=== PATIENT | female | born 1940 | race Caucasian/White ===

== ENCOUNTER → 2016-10-02 | Outpatient (CLI) | payer MEDICARE ==
--- NOTE | 2016-10-02 13:46 | MR ---
EXAMINATION TYPE: MR brain and iac wo/w con DATE OF EXAM: 10/02/2016 12:29 PM COMPARISON: NONE HISTORY: Tonsil mass, Hearing loss CONTRAST: 20 mL MultiHance TECHNIQUE: T1-weighted sagittal, diffusion, T2, and FLAIR axial views of the brain are submitted. The high-reso lution T2 axial and postcontrast T1 axial and coronal views of the IACs are submitted. FINDINGS: There is no pathologic enhancement of the seventh and eighth cranial nerve complex. There is no acou stic neuroma. There is a 5 mm calvarial lesion likely benign. There are approximately 30 white matter lesions which are nonspecific scattered throughout both cerebral hemispheres. Nasal septal deviation changes of chronic sinusitis noted. No evidence of cerebellopontine angle mass or acoustic neuroma. Nasopharynx symmetric. Oropharynx and peritonsillar region not included on the exam. No midline shift. Ventricular system midline. Mastoid air cells are clear. IMPRESSION: 1. No evidence of cerebellopontine angle mass or acoustic neuroma. 2. Indeterminate tiny right calvarial lesion most likely benign measuring 5 mm 3. Degenerative change with nonspecific white matter findings most typical remote microvascular ische thanh. 4. On the coronal view of the does appear to be mild prominence of the peritonsillar soft tissues whi ch is only partially included on exam. The patient apparently rescheduled exam for soft tissue neck d ue to claustrophobia.
== END | disposition home or self-care (01) ==
LOC: RADMRIMAIN 11:25
PROVIDERS: ATTEND Otolaryngology
DX: G31.9 Degenerative disease of nervous system, unspecified (principal); R90.82 White matter disease, unspecified
CPT/HCPCS: 70553; A9577

== ENCOUNTER → 2016-10-08 | Outpatient (CLI) | payer MEDICARE ==
--- NOTE | 2016-10-10 09:52 | MR ---
EXAMINATION TYPE: MR neck wo/w con DATE OF EXAM: 10/08/2016 2:47 PM COMPARISON: MRI brain and internal auditory canal from 6 days earlier HISTORY: Tonsillar mass per order, right-sided hearing loss and tinnitus per patient. CONTRAST: Standard multiplanar, multisequence MRI departmental protocol utilizing 20 mL intravenous MultiHance gadolinium contrast. FINDINGS: Beginning at level of the posterior oropharyngeal airway at level of the tongue base there is heterogeneous fairly symmetric lobulated tissue causing concentric irregular narrowing of the airw ay seen best near axial image 26 extending inferiorly to the hyoid bone, area of involvement measures roughly 4 cm transversely by 4 cm in craniocaudal dimension by 2 cm anterior posterior dimension. There are suspicious lymph nodes bilaterally above level of hyoid bone, for reference right sided lym ph node just anterior to internal jugular vein measures 1.3 x 1.1 cm on axial image 22. There are pro minent but subcentimeter left sided neck lymph nodes at this level identified. There appears to be slight asymmetric thickening without enhancement at level of the piriform sinus n ear axial image 17. There is suspicious lymph node at level of left thyroid gland lateral aspect measuring 2.0 x 1.5 cm o n axial image 11 series 601. A prominent but subcentimeter lymph node is seen just superior to this at is also suspicious. Visualized paranasal sinuses are clear. Nasal septum is deviated to right of midline. The globes are intact bilaterally. Visualized portion of brain parenchyma is within normal limits. Visualized osseou s structures are intact. IMPRESSION: Suspect large lobulated posterior tongue base mass with hypopharyngeal extension causing narrowing of the airway, bilateral neck adenopathy is suspected, advise PET CT correlation to confirm all finding s as there is some artifact degradation noted on MRI.
== END | disposition home or self-care (01) ==
LOC: RADMRIMAIN 13:29
PROVIDERS: ATTEND Otolaryngology
DX: H91.90 Unspecified hearing loss, unspecified ear (principal); H93.19 Tinnitus, unspecified ear; H93.3X9 Disorders of unspecified acoustic nerve; J35.9 Chronic disease of tonsils and adenoids, unspecified; R22.1 Localized swelling, mass and lump, neck
CPT/HCPCS: 70543; A9577

== ENCOUNTER 2016-10-30 09:18 | Day surgery (SDC) | payer MEDICARE ==
[2016-10-28 13:27] VITALS: BMI 43.0
[~2016-10-30 09:18] MED LIST: DEXAMETHASONE SOD PHOSPHATE 10 MG/ML 1 ML VIAL IV ONE; DEXAMETHASONE SOD PHOSPHATE 4 MG/ML 1 ML VIAL IV ONE; FAMOTIDINE 20 MG/2 ML VIAL IV ONE; HYDROmorphone 1 MG/ML 1 ML SYRINGE IVP PRN; LACTATED RINGERS 1,000 ML IV SCH; ONDANSETRON 4 MG/2 ML VIAL IVP ONE
[2016-10-30 10:31] LABS: Glucose,Whole Blood 137 mg/dL (75-99)
[2016-10-30] MEDS ORDERED: LIDOCAINE 1% 20 ML VIAL (10MG/ML) FOR IV START INTRADERMA ONE (10:31)
[2016-10-30] MEDS ORDERED: MIDAZOLAM 2 MG/2 ML VIAL ONE (11:50)
[2016-10-30] MEDS ORDERED: DEXAMETHASONE SOD PHOS (MDV) 100 MG/10 ML VIAL ONE (11:50)
[2016-10-30] MEDS ORDERED: GLYCOPYRROLATE 0.2 MG/ML 2 ML VIAL ONE (11:50)
[2016-10-30] MEDS ORDERED: NEOSTIGMINE 1 MG/ML 10 ML VIAL ONE (11:50)
[2016-10-30] MEDS ORDERED: ROCURONIUM BROMIDE 10 MG/ML 10 ML VIAL IV ONE (11:50)
[2016-10-30] MEDS ORDERED: LIDOCAINE 1% INJ 10MG/ML (20 ML MDV) ONE (11:50)
[2016-10-30] MEDS ORDERED: fentaNYL (PF) 50 MCG/ML 2 ML AMP ONE (11:50)
[2016-10-30] MEDS ORDERED: PROPOFOL 10 MG/ML 20 ML VIAL IV ONE (11:50)
[2016-10-30] MEDS ORDERED: SUCCINYLCHOLINE CHLORIDE VIAL 200 MG/10 ML VIAL IV ONE (11:50)
[2016-10-30] MEDS: ceFAZolin 1,000 MG in DEXTROSE/WATER 1 50ML.BAG IV ONE ×2 (12:05→12:39)
[2016-10-30] MEDS ORDERED: SODIUM CHLORIDE 0.9% 50 ML with ceFAZolin 1,000 MG IV ONE ×2 (12:05)
--- NOTE | 2016-10-30 12:57 | P.OP ---
Date of Procedure: 10/30/16 Preoperative Diagnosis: Mass right base of tongue Suspicious tonsillar enlargement Cough Dysphasia Postoperative Diagnosis: Same Esophagitis Procedure(s) Performed: Triple endoscopy with biopsy of the right base of tongue Bilateral tonsillar biopsy Implants: Anesthesia: MIKEA Surgeon: Sarabjit Mosher Estimated Blood Loss (ml): 20 Pathology: other (We sent the right base of tongue and bilateral tonsil specimen fresh for analysis to rule out lymphoma and her other pathologies.) Condition: stable Disposition: PACU Indications for Procedure: This patient was found to have a right base of tongue lesion and large suspicious. Patient also has irregular tonsils that were suspicious and biopsy is recommended. Patient had a MRI scan done demonstrating a large lobulated posterior tongue base mass with a hypopharyngeal extension causing narrowing of the airway and bilateral neck lymphadenopathy is suspected. Biopsy was recommended and the tissue is to be sent fresh. Operative Findings: Patient had a base of tongue mass located more on the right side and some tonsillar hypertrophy which was suspicious which was biopsied. Patient also had some esophagitis changes. Description of Procedure: This patient was taken to the operative room and placed in a supine position. A general inhalation anesthetic was administered and the patient was intubated with a #5 STUDIO CONTROL OPERATOR tube. A Jako laryngoscope was placed into the patient's mouth with care to avoid any trauma to the lips teeth gums and tongue. Mouth was opened tongue was depressed and the entire Ciaran and hypopharynx was evaluated including the piriform sinus epiglottic folds Davis cords of course base of tongue both bilaterally and tonsil area were all evaluated. Postcricoid space vallecula epiglottis all were evaluated. The tonsils were enlarged and suspicious and biopsies were taken we sent these fresh I also evaluated the base the tongue and there was a mass type lesion of the base the tongue extending inferiorly. We biopsied this area and sent this for fresh evaluation to rule out lymphoma and her other possible malignancies. We did a thorough examination including microscopic examination and no other pathology was noted. We removed the Jako laryngoscope and a bronchoscope was inserted into the patient's trachea and all 12 segments of the lungs were evaluated. We perform the bronchoscopy to the extent of visualization with the bronchoscope and again no pulmonary abnormalities were noted. The esophagus was then evaluated and an esophagoscopy was placed into the mouth following the right piriform sinus into the proximal esophagus. We did evaluate the entire esophagus from the upper to the lower esophageal sphincter. The visualization was somewhat difficult as the esophagus was quite inflamed. Esophagoscope was removed and the patient tolerated this well. The stomach was suctioned and will be seeing the patient back in the office in 1 week for recheck. Patient is on a soft diet.
[2016-10-30 13:09] VITALS: TEMP 97.6
[2016-10-30] MEDS ORDERED: IV FLUID CONTINUATION 1,000 ML IV ONE ×2 (14:03)
[2016-10-30 14:27] VITALS: PULSE 89
[2016-10-30 14:35] LABS: Glucose,Whole Blood 213 mg/dL (75-99)
[2016-10-30 14:58] VITALS: BP 137/77; RESP 20
== END 2016-10-30 15:21 | disposition home or self-care (01) ==
LOC: OR 09:18
PROVIDERS: ATTEND Otolaryngology
DX: K14.0 Glossitis (principal); J35.1 Hypertrophy of tonsils; R47.02 Dysphasia; Z88.5 Allergy status to narcotic agent; J44.9 Chronic obstructive pulmonary disease, unspecified; K21.0 Gastro-esophageal reflux disease with esophagitis; E11.9 Type 2 diabetes mellitus without complications; E78.5 Hyperlipidemia, unspecified; Z99.81 Dependence on supplemental oxygen; R42 Dizziness and giddiness; Z79.84 Long term (current) use of oral hypoglycemic drugs; Z79.4 Long term (current) use of insulin; Z79.899 Other long term (current) drug therapy; Z87.891 Personal history of nicotine dependence
CPT/HCPCS: 42800; 41599; 88305; 88312; J2250; J0330; J1100 ×2; J2710; J2405; J2001; J3010; J0690; J2704; 88307

== ENCOUNTER 2018-11-21 02:36 | Inpatient (IN) | payer MEDICARE ==
[2018-11-21] MEDS ORDERED: ENOXAPARIN 100 MG/ML SYRINGE SQ STA (03:30)
[2018-11-21] MEDS ORDERED: DEXTROSE 5% IN WATER 100 ML with AMIODARONE 150 MG IV ONE (03:30)
[2018-11-21] MEDS ORDERED: DEXTROSE 5% IN WATER 250 ML with AMIODARONE 300 MG IV ONE (04:00)
[2018-11-21] MEDS ORDERED: IPRATROPIUM-ALBUTEROL 3 ML NEB INHALATION STA (04:12)
[2018-11-21 04:27] LABS: Basophils % (A) 0 %; Eosinophils # (A) 0.1 k/uL (0-0.7); Eosinophils % (A) 1 %; HCT 45.2 % (34.0-46.0); HGB 14.8 gm/dL (11.4-16.0); Lymphocytes # (A) 2.4 k/uL (1.0-4.8); Lymphocytes % (A) 24 %; MCH 29.4 pg (25.0-35.0); MCHC 32.6 g/dL (31.0-37.0); MCV 90.1 fL (80.0-100.0); Mean Platelet Volume 8.7; Monocytes # (A) 0.7 k/uL (0-1.0); Monocytes % (A) 7 %; Neutrophils # (A) 6.6 k/uL (1.3-7.7); Neutrophils % (A) 65 %; Platelet Count 184 k/uL (150-450); RBC 5.02 m/uL (3.80-5.40); RDW 13.2 % (11.5-15.5); WBC 10.1 k/uL (3.8-10.6)
[2018-11-21 04:35] LABS: ALT 29 U/L (9-52); AST 32 U/L (14-36); African American GFR (CKD) >90 (>60 ml/min/1.73 sqM); Albumin 3.6 g/dL (3.5-5.0); Alkaline Phosphatase 76 U/L (38-126); Anion Gap 7 mmol/L; Blood Urea Nitrogen 11 mg/dL (7-17); Calcium 8.6 mg/dL (8.4-10.2); Carbon Dioxide 29 mmol/L (22-30); Chloride 102 mmol/L (98-107); Glucose 226 mg/dL (74-99); Magnesium 2.2 mg/dL (1.6-2.3); Potassium 4.3 mmol/L (3.5-5.1); Sodium 138 mmol/L (137-145); Total Bilirubin 0.8 mg/dL (0.2-1.3); Total Protein 7.1 g/dL (6.3-8.2)
[2018-11-21] MEDS ORDERED: NITROGLYCERIN SL TABS 0.4 MG TAB SUBLINGUAL PRN (04:51)
[2018-11-21 04:52] LABS: Prothrombin Time 10.3 sec (9.0-12.0)
[2018-11-21 04:55] LABS: Partial Thromboplastin Time 21.2 sec (22.0-30.0)
[2018-11-21] MEDS ORDERED: MECLIZINE 12.5 MG TAB PO PRN (04:55)
[2018-11-21] MEDS ORDERED: LORazepam 0.5 MG TAB PO PRN (04:55)
[2018-11-21] MEDS ORDERED: ACETAMINOPHEN TAB 325 MG TAB PO PRN (04:55)
[2018-11-21] MEDS ORDERED: HYDROcodone/APAP 5-325MG 1 EACH TAB PO PRN (04:55)
[2018-11-21] MEDS ORDERED: ONDANSETRON 4 MG TAB PO PRN (04:55)
[2018-11-21] MEDS ORDERED: predniSONE 20 MG TAB PO SCH (05:00)
--- NOTE | 2018-11-21 07:17 | ED ---
SOB HPI - General Chief Complaint: Shortness of Breath Stated Complaint: SOB Time Seen by Provider: 11/21/18 02:56 Source: patient, EMS Mode of arrival: EMS Limitations: no limitations - History of Present Illness Initial Comments: This patient is a 78-year-old woman who arrives here as a transfer from [facility]. The patient states that she had gone there tonight to be evaluated for shortness of breath. The patient relates she does have history of underlying COPD. Off for 2-3 days now she has noticed that her breathing was getting worse than usual. She also has had a little bit of nonproductive cough. The patient thought that her COPD was worsening and went to the other hospital. When the patient was worked up there she was found to be in atrial fibrillation versus atrial flutter. The patient was given IV Cardizem and when this did not revert her they transferred her here because there is no cardiology coverage over the weekend. The patient denies chest pain. She states she was not aware of any palpitations and did not feel like her heart was racing. Patient denies fever or productive cough. MD Complaint: shortness of breath Onset/Timin -: days(s) Severity scale (1-10): 0 Consistency: constant Improves With: oxygen Worsens With: nothing Known History Of: COPD Associated Symptoms: cough Treatments Prior to Arrival: other - Related Data Home Oxygen Therapy: No Home Medications Medication Instructions Recorded Confirmed Acetaminophen Tab [Tylenol Tab] 650 mg PO Q4-6H PRN 10/28/16 10/30/16 Albuterol Nebulized [Ventolin 2.5 mg INHALATION TID 10/28/16 10/30/16 Nebulized] Fluticasone Nasal [place] [Flonase 1 spray EA NOSTRIL DAILY 10/28/16 10/30/16 Nasal [place]] LORazepam [Ativan] 0.5 mg PO TID PRN 10/28/16 10/30/16 Loratadine 10 mg PO DAILY 10/28/16 10/30/16 Meclizine [Antivert] 12.5 mg PO TID PRN 10/28/16 10/30/16 Ondansetron [Zofran] 4 mg PO Q8HR PRN 10/28/16 10/30/16 Simvastatin [Zocor] 10 mg PO HS 10/28/16 10/30/16 metFORMIN HCL [Metformin HCl] 500 mg PO BID 10/28/16 10/30/16 Previous Rx's Medication Instructions Recorded Amoxicillin/Potassium Clav 1 each PO Q12HR #14 tab 10/30/16 [Augmentin 875-125 Tablet] Hydrocodone/Acetaminophen [[place] 1 each PO Q6HR PRN #30 tab 10/30/16 5-325] Omeprazole 20 mg PO BID #60 tablet. 10/30/16 predniSONE 20 mg PO DIRECTED #5 tab 10/30/16 Allergies Allergy/AdvReac Type Severity Reaction Status Date / Time meperidine [From Demerol] Allergy Severe Anaphylaxis Verified 10/30/16 10:17 Review of Systems ROS Statement: Those systems with pertinent positive or pertinent negative responses have been documented in the HPI. ROS Other: All systems not noted in ROS Statement are negative. Constitutional: Denies: fever, chills Respiratory: Reports: cough, dyspnea. Denies: hemoptysis Cardiovascular: Denies: chest pain, palpitations, edema, syncope Gastrointestinal: Denies: abdominal pain, vomiting, diarrhea Genitourinary: Denies: dysuria, hematuria Musculoskeletal: Denies: back pain Skin: Denies: rash Neurological: Denies: headache, weakness, numbness Psychiatric: Reports: anxiety Past Medical History Past Medical History: COPD, Diabetes Mellitus, Osteoarthritis (OA) Additional Past Medical History / Comment(s): BACK PAIN, ENVIRONMENTAL ALLERGIES, OXYGEN AT 2 L PRN SOB., STATES NEW DIAGNOSIS OF MENIERES WITH VERTIGO. History of Any Multi-Drug Resistant Organisms: None Reported Past Surgical History: Breast Surgery, Hysterectomy Past Anesthesia/Blood Transfusion Reactions: No Reported Reaction, Motion S ickness Past Psychological History: No Psychological Hx Reported Smoking Status: Former smoker Past Alcohol Use History: None Reported Past Drug Use History: None Reported - Past Family History Mother Family Medical History: Cancer Additional Family Medical History / Comment(s): LUNG CANCER General Exam Limitations: no limitations General appearance: alert, in distress Head exam: Present: atraumatic, normocephalic Eye exam: Present: normal appearance. Absent: scleral icterus, conjunctival injection ENT exam: Present: normal oropharynx Respiratory exam: Present: wheezes. Absent: respiratory distress, rales, rhonchi, stridor Cardiovascular Exam: Present: tachycardia, normal heart sounds. Absent: systolic murmur, diastolic murmur, rubs, gallop GI/Abdominal exam: Present: soft. Absent: distended, tenderness, guarding, rebound, rigid, mass Extremities exam: Present: normal inspection, normal capillary refill. Absent: pedal edema, calf tenderness Back exam: Present: normal inspection. Absent: CVA tenderness (R), CVA tenderness (L) Neurological exam: Present: alert, oriented X3 Skin exam: Present: warm, dry, intact, normal color. Absent: rash Course Vital Signs 11/21/18 11/21/18 11/21/18 02:41 04:15 04:25 Temperature 97.8 F Pulse Rate 146 H 100 97 Respiratory 22 Rate Blood Pressure 126/70 O2 Sat by Pulse 95 Oximetry 11/21/18 11/21/18 11/21/18 05:03 05:08 06:28 Temperature 98.4 F Pulse Rate 96 92 Respiratory 20 18 18 Rate Blood Pressure 95/65 112/63 O2 Sat by Pulse 97 97 Oximetry Medical Decision Making - Medical Decision Making Patient is a 78-year-old woman transferred here from [facility] for a narrow complex tachycardia to have admission and cardiology consultation. I had ordered medication for rate control when the patient spontaneously reverted to sinus rhythm. The patient's initial ECG shows a narrow complex tachycardia which I suspect is atrial fibrillation though it may be atrial flutter with 2-1 conduction. The patient's postconversion ECG shows sinus rhythm. Patient will be admitted for serial cardiac enzymes and to have cardiology consultation. She does feel well after converting. - Lab Data Result diagrams: 11/21/18 03:45 11/21/18 03:45 Lab Results 11/21/18 11/21/18 11/21/18 Range/Units 03:45 03:45 03:45 WBC 10.1 (3.8-10.6) k/uL RBC 5.02 (3.80-5.40) m/uL Hgb 14.8 (11.4-16.0) gm/dL Hct 45.2 (34.0-46.0) % MCV 90.1 (80.0-100.0) fL MCH 29.4 (25.0-35.0) pg MCHC 32.6 (31.0-37.0) g/dL RDW 13.2 (11.5-15.5) % Plt Count 184 (150-450) k/uL Neutrophils % 65 % Lymphocytes % 24 % Monocytes % 7 % Eosinophils % 1 % Basophils % 0 % Neutrophils # 6.6 (1.3-7.7) k/uL Lymphocytes # 2.4 (1.0-4.8) k/uL Monocytes # 0.7 (0-1.0) k/uL Eosinophils # 0.1 (0-0.7) k/uL Basophils # 0.0 (0-0.2) k/uL PT 10.3 (9.0-12.0) sec INR 1.0 (<1.2) APTT 21.2 L (22.0-30.0) sec Sodium 138 (137-145) mmol/L Potassium 4.3 (3.5-5.1) mmol/L Chloride 102 (98-107) mmol/L Carbon Dioxide 29 (22-30) mmol/L Anion Gap 7 mmol/L BUN 11 (7-17) mg/dL Creatinine 0.63 (0.52-1.04) mg/dL Est GFR (CKD-EPI)AfAm >90 (>60 ml/min/1.73 sqM) Est GFR (CKD-EPI)NonAf 87 (>60 ml/min/1.73 sqM) Glucose 226 H (74-99) mg/dL Calcium 8.6 (8.4-10.2) mg/dL Magnesium 2.2 (1.6-2.3) mg/dL Total Bilirubin 0.8 (0.2-1.3) mg/dL AST 32 (14-36) U/L ALT 29 (9-52) U/L Alkaline Phosphatase 76 (38-126) U/L Troponin I (0.000-0.034) ng/mL Total Protein 7.1 (6.3-8.2) g/dL Albumin 3.6 (3.5-5.0) g/dL 11/21/18 Range/Units 03:45 WBC (3.8-10.6) k/uL RBC (3.80-5.40) m/uL Hgb (11.4-16.0) gm/dL Hct (34.0-46.0) % MCV (80.0-100.0) fL MCH (25.0-35.0) pg MCHC (31.0-37.0) g/dL RDW (11.5-15.5) % Plt Count (150-450) k/uL Neutrophils % % Lymphocytes % % Monocytes % % Eosinophils % % Basophils % % Neutrophils # (1.3-7.7) k/uL Lymphocytes # (1.0-4.8) k/uL Monocytes # (0-1.0) k/uL Eosinophils # (0-0.7) k/uL Basophils # (0-0.2) k/uL PT (9.0-12.0) sec INR (<1.2) APTT (22.0-30.0) sec Sodium (137-145) mmol/L Potassium (3.5-5.1) mmol/L Chloride (98-107) mmol/L Carbon Dioxide (22-30) mmol/L Anion Gap mmol/L BUN (7-17) mg/dL Creatinine (0.52-1.04) mg/dL Est GFR (CKD-EPI)AfAm (>60 ml/min/1.73 sqM) Est GFR (CKD-EPI)NonAf (>60 ml/min/1.73 sqM) Glucose (74-99) mg/dL Calcium (8.4-10.2) mg/dL Magnesium (1.6-2.3) mg/dL Total Bilirubin (0.2-1.3) mg/dL AST (14-36) U/L ALT (9-52) U/L Alkaline Phosphatase (38-126) U/L Troponin I 0.014 (0.000-0.034) ng/mL Total Protein (6.3-8.2) g/dL Albumin (3.5-5.0) g/dL - EKG Data -: EKG Interpreted by [place] EKG shows normal: axis (Normal), intervals (Normal), QRS complexes (Normal), ST- T waves (Normal) Rate: tachycardia (Rate approximately 147 bpm) Interpretation: other (The underlying rhythm appears to be atrial fibrillation with a rate 147 bpm) Disposition Clinical Impression: Atrial fibrillation with RVR Disposition: ADMITTED IP TO THIS [facility] Condition: Good Is patient prescribed a controlled substance at d/c from ED?: No
[2018-11-21] MEDS ORDERED: AMOXIC-POT CLAV 875-125MG 1 EACH TAB PO SCH (09:00)
[2018-11-21] MEDS ORDERED: FLUTICASONE 50MCG/SPRAY NASAL 16GM EA NOSTRIL SCH (09:00)
[2018-11-21] MEDS: ALBUTEROL NEBULIZED 2.5 MG/3 ML INHALATION SCH ×2 (09:13→14:20)
[2018-11-21] MEDS: PANTOPRAZOLE 40 MG TABLET PO SCH ×2 (09:41→21:36)
[2018-11-21] MEDS: HEPARIN SOD,PORK IN 0.45% NACL 25,000 UNIT in 0.45% NACL 1 250ML.BAG IV SCH (13:10)
[2018-11-21] MEDS: METOPROLOL TARTRATE 50 MG TAB PO SCH ×2 (13:10→21:35)
--- NOTE | 2018-11-21 13:46 | P.CRDCN ---
History of Present Illness Consult date: 11/21/18 Reason for Consult (text): Paroxysmal atrial fibrillation Chief complaint: Proximal atrial fibrillation History of present illness: HISTORY OF PRESENT ILLNESS AND PLAN: This is a [78]-year-old [female] with history of remote smoking, COPD hyperlipidemia, diabetes mellitus, osteoarthritis, back pain, seasonal ALLERGI ES, Mnire's disease, vertigo and PRN O2 at home. Patient presents in the emergency department with complaints of [shortness of breath, cough and vomiting due to cough. Transferred from [facility] due to no cardiology coverage for weekend. Patient currently sitting up receiving breathing treatment with no acute distress. Cough is better and patient is able to speak. Patient states her cough has been getting worse and worse so she went to [facility]. Patient has been in and out of atrial fibrillation/atrial flutter/sinus tachycardia. Patient states she has had no chest pain, chest pressure, palpitations, or lower extremity edema. Afebrile. Troponins negative 1. ]. SIGNIFICANT PAST MEDICAL HISTORY: [remote smoking, COPD hyperlipidemia, diabetes mellitus, osteoarthritis, back pain, seasonal ALLERGIES, Mnire's disease, vertigo and PRN O2 at home.] PAST SURGICAL HISTORY: See list. EKG shows [sinus rhythm/sinus tach], heart rate [99] bpm. Troponins negative x [1]. SIGNIFICANT LABORATORY VALUES: [CBC WNL. BMP WNL]. Chest x-ray [none]. REVIEW OF SYSTEMS: CONSTITUTIONAL: No acute distress, currently getting updraft treatment. States cough is already better. EYES: Denies blurred vision. [Denies blurred vision or vision changes. Denies eye pain.] EARS, NOSE, MOUTH & THROAT: [Denies headache. Denies sore throat. Denies ear pain Denies hemoptysis.] CARDIOVASCULAR: [Denies chest pain. Complains of shortness of breath. Denies orthopnea. Denies PND. Denies palpitations.] RESPIRATORY: [Complains of cough, shortness of breath. ] GASTROINTESTINAL: [Denies abdominal pain or distention. Denies diarrhea. Denies constipation. Denies nausea. Complains of vomiting due to coughing hard.] MUSCULOSKELETAL: [Complains of myalgias.] INTEGUMENTARY: [Denies pruitis. Denies rash.] ENDOCRINE: [Denies fatigue. Denies weight change. Denies polydipsia. Denies polyurina Denies heat/cold intolerance.] GENITOURINARY:[ Denies burning, hematuria or urgency with micturation.] HEMATOLOGIC: [Denies history of anemia. Denies bleeding.] NEUROLOGIC: [Denies numbness. Denies tingling. Denies weakness.] PSYCHIATRIC: [Denies anxiety. Denies depression.] PHYSICAL EXAM: VITAL SIGNS: WNL GENERAL: Well developed, in no acute distress. AOX3 HEENT: Head is atraumatic, normocephalic. Pupils are equal, round. Extra ocular movements intact. Mucous membranes moist. Neck supple. No JVD. No carotid bruit. No thyromegaly. LUNGS: Auscultation reveals wheezes. No rales or rhonchi. No chest wall tenderness on palpation or with deep breathing. HEART: Regular rate and rhythm, no rubs or gallops. S1 and S2 heard. No murmur. ABDOMEN: Abdominal exam, WNL. Bowel sounds x4 quads. Soft, non-tender, without masses, organomegaly, or abdominal aorta enlargement. EXTREMITIES/VASCULAR: Extremities have easily palpable radial, femoral, dorsalis pedis and posterior tibial pulses. No cyanosis, calf tenderness. No BLE edema. NEUROLOGIC: Patient is awake, alert and oriented x3. No focal neurologic abnormalities. FINAL IMPRESSION: 1. [ COPD exacerbation] 2. [ Intractable cough with vomiting]. 3. [ New onset Atrial fibrillation/atrial flutter]. 4. [ Hyperlipidemia]. 5. [ Diabetes mellitus]. PLAN: [Start IV heparin for new onset atrial fibrillation. Start Lopressor 50 mg twice daily first dose NOW. Patient to echocardiogram. Check TSH/free t4. Consult Pulmonary. Continue with current medication/medical regime. Continue with updraft treatments. Continue home medications. Thank you kindly for this consult.] Nurse Practitioner note has been reviewed by the Physician. Signing provider agrees with the documented findings, assessment and plan of care. Past Medical History Past Medical History: COPD, Diabetes Mellitus, Osteoarthritis (OA) Additional Past Medical History / Comment(s): BACK PAIN, ENVIRONMENTAL ALLERGIES, OXYGEN AT 2 L PRN SOB., STATES NEW DIAGNOSIS OF MENIERES WITH VERTIGO. History of Any Multi-Drug Resistant Organisms: None Reported Past Surgical History: Breast Surgery, Hysterectomy Past Anesthesia/Blood Transfusion Reactions: No Reported Reaction, Motion Sickness Past Psychological History: No Psychological Hx Reported Smoking Status: Former smoker Past Alcohol Use History: None Reported Past Drug Use History: None Reported - Past Family History Mother Family Medical History: Cancer Additional Family Medical History / Comment(s): LUNG CANCER Medications and Allergies Home Medications Medication Instructions Recorded Confirmed Type Acetaminophen Tab [Tylenol Tab] 650 mg PO Q4-6H PRN 10/28/16 11/21/18 History Albuterol Nebulized [Ventolin 2.5 mg INHALATION RT-TID 10/28/16 11/21/18 History Nebulized] Loratadine 10 mg PO DAILY 10/28/16 11/21/18 History Ondansetron [Zofran] 4 mg PO Q8HR PRN 10/28/16 11/21/18 History Simvastatin [Zocor] 10 mg PO HS 10/28/16 11/21/18 History metFORMIN HCL [Metformin HCl] 500 mg PO BID 10/28/16 11/21/18 History Insulin Detemir [Levemir Flextouch] 40 unit SQ HS 11/21/18 11/21/18 History Meclizine [Antivert] 25 mg PO BID 11/21/18 11/21/18 History Allergies Allergy/AdvReac Type Severity Reaction Status Date / Time celery Allergy Severe Rash/Hives Verified 11/21/18 07:41 meperidine [From Demerol] Allergy Severe Anaphylaxis Verified 10/30/16 10:17 Physical Exam Vitals: Vital Signs Temp Pulse Resp BP Pulse Ox 11/21/18 09:27 92 11/21/18 09:14 90 20 96 11/21/18 08:34 90 20 132/87 97 11/21/18 06:28 98.4 F 92 18 112/63 97 11/21/18 05:08 96 18 95/65 97 11/21/18 05:03 20 11/21/18 04:25 97 11/21/18 04:15 100 11/21/18 02:41 97.8 F 146 H 22 126/70 95 Intake and Output 11/20/18 11/21/18 11/21/18 22:59 06:59 14:59 Other: Weight 95.254 kg Results 11/21/18 03:45 11/21/18 03:45 Cardiac Enzymes 11/21/18 11/21/18 Range/Units 03:45 03:45 AST 32 (14-36) U/L Troponin I 0.014 (0.000-0.034) ng/mL Coagulation 11/21/18 Range/Units 03:45 PT 10.3 (9.0-12.0) sec APTT 21.2 L (22.0-30.0) sec CBC 11/21/18 Range/Units 03:45 WBC 10.1 (3.8-10.6) k/uL RBC 5.02 (3.80-5.40) m/uL Hgb 14.8 (11.4-16.0) gm/dL Hct 45.2 (34.0-46.0) % Plt Count 184 (150-450) k/uL Comprehensive Metabolic Panel 11/21/18 Range/Units 03:45 Sodium 138 (137-145) mmol/L Potassium 4.3 (3.5-5.1) mmol/L Chloride 102 (98-107) mmol/L Carbon Dioxide 29 (22-30) mmol/L BUN 11 (7-17) mg/dL Creatinine 0.63 (0.52-1.04) mg/dL Glucose 226 H (74-99) mg/dL Calcium 8.6 (8.4-10.2) mg/dL AST 32 (14-36) U/L ALT 29 (9-52) U/L Alkaline Phosphatase 76 (38-126) U/L Total Protein 7.1 (6.3-8.2) g/dL Albumin 3.6 (3.5-5.0) g/dL Current Medications Generic Name Dose Route Start Last Admin Trade Name Freq PRN Reason Stop Dose Admin Acetaminophen 650 mg 11/21/18 04:55 Tylenol Tab PO Q6H PRN Pain Hydrocodone Bitart/Acetaminophen 1 each 11/21/18 04:55 [place] 5-325 PO Q6HR PRN Pain Albuterol Sulfate 2.5 mg 11/21/18 09:00 11/21/18 09:13 Ventolin Nebulized INHALATION 2.5 mg TID [facility] Administration Amoxicillin/Clavulanate Potassium 1 each 11/21/18 09:00 Augmentin 875-125 PO Q12HR [facility] Aspirin 325 mg 11/22/18 09:00 Aspirin PO DAILY [facility] Fluticasone Propionate 1 spray 11/21/18 09:00 Flonase Nasal [place] EA NOSTRIL DAILY ALOK Lorazepam 0.5 mg 11/21/18 04:55 Ativan PO TID PRN Vertigo Meclizine HCl 12.5 mg 11/21/18 04:55 Antivert PO TID PRN Vertigo Nitroglycerin 0.4 mg 11/21/18 04:51 Nitrostat SUBLINGUAL Q5M PRN Chest Pain Non-Formulary Medication 10 mg 11/21/18 21:00 Simvastatin PO HS ALOK Ondansetron HCl 4 mg 11/21/18 04:55 Zofran PO Q8HR PRN Nausea Pantoprazole Sodium 40 mg 11/21/18 09:00 11/21/18 09:41 Protonix PO 40 mg BID ALOK Administration Prednisone 20 mg 11/21/18 05:00 11/21/18 07:13 PO Not Given DIRECTED ALOK Sodium Chloride 10 ml 11/21/18 09:00 11/21/18 09:42 Saline Flush IV 10 ml BID ALOK Administration Intake and Output 11/20/18 11/21/18 11/21/18 22:59 06:59 14:59 Other: Weight 95.254 kg 11/21/18 03:45 11/21/18 03:45 - EKG Interpretation EKG: sinus rhythm, normal ST/T (in and out of A flutter.)
[2018-11-21] MEDS ORDERED: HEPARIN SODIUM,PORCINE 5,000 UNIT/ML 1 ML VIAL IV STA (15:41)
[2018-11-21 17:04] LABS: Glucose,Whole Blood 262 mg/dL (75-99)
[2018-11-21] MEDS: INSULIN ASPART (NovoLOG) 100 UNIT/ML VIAL SQ SCH ×2 (17:41→21:36)
--- NOTE | 2018-11-21 18:13 | P.HPIM ---
History of Present Illness H&P Date: 11/21/18 Chief Complaint: Shortness of breath and cough Patient is a 78-year-old female with a known history of hypertension, diabetes type 2 insulin-dependent, COPD with recent history of smoking on home oxygen as needed, history of Mnire's disease initially presents to [facility] with complaints of cough and shortness of breath. Patient says that since last Thursday night she's been having increased breath cough and without any sputum production. Next day morning patient checked her blood pressure and was found to have increase in heart rate up to 150s. Patient initially presents to [facility] ER thinking that she was having COPD exacerbation, where she was found to have atrial fibrillation with RVR and was transferred to [facility] for further evaluation. Patient otherwise denied any chest pain. No palpitations. No leg swelling. No fever no chills. Patient did have an episode of vomiting with cough. No diarrhea. No nausea or abdominal pain. Patient was on Cardizem drip. Patient was also given amiodarone in the ER.. Currently rate is controlled with heart rate in around 100. Troponin 3 negative. Review of Systems Constitutional: Patient denies any fever or chills . No generalized weakness or weight loss. Abdomen: Patient denied nausea vomiting and diarrhea and abdominal pain. Cardiovascular: No chest pain. He does have shortness of breath. No palpitations. No leg swelling.. Respiratory: Cough without sputum production.. Patient does have shortness of breath Neurologic: Patient denied any numbness or tingling headache. Musculoskeletal: Patient denies any complaints of joint swelling or deformity. Skin: Negative Psychiatric: Negative Endocrine: No heat or cold intolerance. No recent weight gain. Genitourinary: No dysuria or hematuria. All other 14 point ROS negative except the above Past Medical History Past Medical History: COPD, Diabetes Mellitus, Osteoarthritis (OA) Additional Past Medical History / Comment(s): BACK PAIN, ENVIRONMENTAL ALLERGIES, OXYGEN AT 2 L PRN SOB., STATES NEW DIAGNOSIS OF MENIERES WITH VERTIGO. History of Any Multi-Drug Resistant Organisms: None Reported Past Surgical History: Breast Surgery, Hysterectomy Past Anesthesia/Blood Transfusion Reactions: No Reported Reaction, Motion Sickness Past Psychological History: No Psychological Hx Reported Smoking Status: Former smoker Past Alcohol Use History: None Reported Past Drug Use History: None Reported - Past Family History Mother Family Medical History: Cancer Additional Family Medical History / Comment(s): LUNG CANCER Medications and Allergies Home Medications Medication Instructions Recorded Confirmed Type Acetaminophen Tab [Tylenol Tab] 650 mg PO Q4-6H PRN 10/28/16 11/21/18 History Albuterol Nebulized [Ventolin 2.5 mg INHALATION RT-TID 10/28/16 11/21/18 History Nebulized] Loratadine 10 mg PO DAILY 10/28/16 11/21/18 History Ondansetron [Zofran] 4 mg PO Q8HR PRN 10/28/16 11/21/18 History Simvastatin [Zocor] 10 mg PO HS 10/28/16 11/21/18 History metFORMIN HCL [Metformin HCl] 500 mg PO BID 10/28/16 11/21/18 History Insulin Detemir [Levemir Flextouch] 40 unit SQ HS 11/21/18 11/21/18 History Meclizine [Antivert] 25 mg PO BID 11/21/18 11/21/18 History Allergies Allergy/AdvReac Type Severity Reaction Status Date / Time celery Allergy Severe Rash/Hives Verified 11/21/18 07:41 meperidine [From Demerol] Allergy Severe Anaphylaxis Verified 10/30/16 10:17 Physical Exam Vitals: Vital Signs Temp Pulse Pulse Resp BP BP Pulse Ox 11/21/18 14:31 88 11/21/18 14:20 84 11/21/18 12:00 98.6 F 98 18 122/79 93 L 11/21/18 09:27 92 11/21/18 09:14 90 20 96 11/21/18 08:34 90 20 132/87 97 11/21/18 06:54 97.8 F 89 20 136/66 95 11/21/18 06:28 98.4 F 92 18 112/63 97 11/21/18 05:08 96 18 95/65 97 11/21/18 05:03 20 11/21/18 04:25 97 11/21/18 04:15 100 11/21/18 02:41 97.8 F 146 H 22 126/70 95 Intake and Output 11/20/18 11/21/18 11/21/18 22:59 06:59 14:59 Other: Weight 95.254 kg PHYSICAL EXAMINATION: Patient is lying in the bed comfortably, no acute distress, awake alert and oriented.. HEENT: Normocephalic. Neck is supple. Pupils reactive. Nostrils clear. Oral cavity is moist. Ears reveal no drainage. Neck reveals no JVD, carotid bruits, or thyromegaly. CHEST EXAMINATION: Trachea is central. Symmetrical expansion. Scattered wheezing positive. No rhonchi and no crackles. ABDOMEN: Soft. Bowel sounds normal. No organomegaly. No abdominal bruits. Extremities: reveal no edema. No clubbing or cyanosis Neurologically awake, alert, oriented x3 with well-coordinated movements. No focal deficits noted Skin: No rash or skin lesions. Psychiatric: Coperative. Nonsuicidal Musculoskeletal: No joint swelling or deformity. Normal range of motion. Results CBC & Chem 7: 11/21/18 03:45 11/21/18 03:45 Labs: Abnormal Lab Results - Last 24 Hours (Table) 11/21/18 11/21/18 Range/Units 03:45 03:45 APTT 21.2 L (22.0-30.0) sec Glucose 226 H (74-99) mg/dL Thrombosis Risk Factor Assmnt - DVT/VTE Prophylaxis DVT/VTE Prophylaxis: Pharmacologic Prophylaxis ordered - Choose All That Apply Each Factor Represents 1 point: Abnormal pulmonary function (COPD) Each Risk Factor Represents 2 Points: Patient confined to bed Other congenital or acquired thrombophilia - If yes, enter type in comment: No Thrombosis Risk Factor Assessment Total Risk Factor Score: 3 Thrombosis Risk Factor Assessment Level: Moderate Risk Assessment and Plan Assessment: New onset atrial fibrillation with rapid ventricular rate. COPD with mild exacerbation. Chronic hypoxic respiratory failure on home oxygen when necessary Diabetes type 2 insulin-dependent Hypertension Hyperlipidemia Previous history of smoking Osteoarthritis Chronic low back pain History of Mnire's disease and vertigo DVT prophylaxis already on heparin drip Morbid obesity BMI 38.4 Plan: Patient will be continued on heparin drip. Cardizem drip was changed to oral beta blockers now. Continue with telemetry monitoring. Serial troponin 3 negative. 2-D echocardiogram was ordered. Cardiology is following. Patient will be continued on DuoNeb's. We'll add prednisone 40 mg daily. Chest x-ray and BNP will be ordered. Continue the insulin dosing and sliding scale. Follow closely and further recommendations based on the clinical course. Time with Patient: Greater than 30
[2018-11-21] MEDS: predniSONE 20 MG TAB PO SCH (19:00)
--- NOTE | 2018-11-21 19:48 | XR ---
EXAMINATION TYPE: XR chest 1V DATE OF EXAM: 11/21/2018 COMPARISON: NONE HISTORY: 78-year-old female with cough and shortness of breath TECHNIQUE: Single frontal view of the chest is obtained. FINDINGS: Heart mildly enlarged. Hyperinflation with mild interstitial prominence. Hazy peripheral lower lung d ensities related to overlying soft tissue. More focal patchy left basilar opacity. No sizable effusio n. IMPRESSION: Borderline heart size and suspected underlying COPD. Limitations due to portable technique and large patient body habitus. More patchy left basilar atelectasis versus infiltrate.
[2018-11-21 21:09] LABS: Glucose,Whole Blood 233 mg/dL (75-99)
[2018-11-21] MEDS: INSULIN DETEMIR (LEVEMIR) 100 UNIT/ML SYR SQ SCH (21:36)
[2018-11-21] MEDS: ATORVASTATIN 10 MG TAB PO SCH (21:36)
[2018-11-22 06:09] LABS: Glucose,Whole Blood 258 mg/dL (75-99)
[2018-11-22] MEDS: INSULIN ASPART (NovoLOG) 100 UNIT/ML VIAL SQ SCH ×4 (06:57→21:14)
[2018-11-22] MEDS: IPRATROPIUM-ALBUTEROL 3 ML NEB INHALATION PRN ×4 (08:03→19:26)
[2018-11-22 08:14] LABS: Cholesterol 149 mg/dL (<200); HDL Cholesterol 56 mg/dL (40-60); LDL Cholesterol,Calculated 71 mg/dL (0-99); Triglycerides 109 mg/dL (<150)
[2018-11-22] MEDS: METOPROLOL TARTRATE 50 MG TAB PO SCH ×2 (08:16→20:27)
[2018-11-22] MEDS: predniSONE 20 MG TAB PO SCH (08:16)
[2018-11-22] MEDS: PANTOPRAZOLE 40 MG TABLET PO SCH ×2 (08:16→20:27)
[2018-11-22] MEDS ORDERED: ASPIRIN 325 MG TAB PO SCH (09:00)
--- NOTE | 2018-11-22 12:03 | ECHOF ---
Referral Reason:Assess LV function MEASUREMENTS -------- HEIGHT: 157.5 cm WEIGHT: 108.9 kg BP: 159/59 RVIDd: 3.6 cm (< 3.3) IVSd: 1.3 cm (0.6 - 1.1) LVIDd: 3.8 cm (3.9 - 5.3) LVPWd: 1.4 cm (0.6 - 1.1) IVSs: 1.7 cm LVIDs: 2.9 cm LVPWs: 1.7 cm LA Diam: 3.5 cm (2.7 - 3.8) LAESV Index (A-L): 17.09 ml/m Ao Diam: 3.0 cm (2.0 - 3.7) AV Cusp: 1.7 cm (1.5 - 2.6) MV EXCURSION: 8.330 mm (> 18.000) MV EF SLOPE: 13 mm/s (70 - 150) EPSS: 1.0 cm MV E Gabriel: 1.06 m/s MV DecT: 157 ms MV A Gabriel: 1.16 m/s MV E/A Ratio: 0.91 RAP: 5.00 mmHg RVSP: 37.32 mmHg FINDINGS -------- Sinus rhythm. This was a technically difficult study with suboptimal views. The left ventricular size is normal. There is moderate concentric left ventricular hypertrophy. O verall left ventricular systolic function is normal with, an EF between 60 - 65 %. The right ventricle is mildly enlarged. Normal LA size by volume 22+/-6 ml/m2. The right atrium is normal in size. 5 ml of Lumason was utilized for enhancement of images. Lipomatous Hypertrophy of the atrial septum is present The aortic valve was not well visualized. Mild mitral annular calcification present. There is trace to mild mitral regurgitation. Mild tricuspid regurgitation present. There is mild pulmonary hypertension. The right ventricular systolic pressure, as measured by Doppler, is 37.32mmHg. The pulmonic valve was not well visualized. The aortic root size is normal. IVC Not well visulized. There is a trivial pericardial effusion present. CONCLUSIONS -------- 1. Sinus rhythm. 2. This was a technically difficult study with suboptimal views. 3. The left ventricular size is normal. 4. There is moderate concentric left ventricular hypertrophy. 5. Overall left ventricular systolic function is normal with, an EF between 60 - 65 %. 6. The right ventricle is mildly enlarged. 7. Normal LA size by volume 22+/-6 ml/m2. 8. The right atrium is normal in size. 9. 5 ml of Lumason was utilized for enhancement of images. 10. Lipomatous Hypertrophy of the atrial septum is present 11. The aortic valve was not well visualized. 12. Mild mitral annular calcification present. 13. There is trace to mild mitral regurgitation. 14. Mild tricuspid regurgitation present. 15. There is mild pulmonary hypertension. 16. The right ventricular systolic pressure, as measured by Doppler, is 37.32mmHg. 17. The pulmonic valve was not well visualized. 18. The aortic root size is normal. 19. IVC Not well visulized. 20. There is a trivial pericardial effusion present. CARD BOXER: Zahra Brumfield RDCS
[2018-11-22 12:06] LABS: Glucose,Whole Blood 312 mg/dL (75-99)
[2018-11-22 12:34] LABS: Hemoglobin A1C 10.2 % (4.0-6.0)
--- NOTE | 2018-11-22 13:17 | P.PN ---
Subjective 78-year-old female with a history of hypertension, diabetes, COPD history of Mnire's disease is transfer from [facility] for A. fib with RVR. She was having shortness of breath and cough at that time. she was put on Cardizem and heparin drip she was also put on breathing treatments and oral steroids. On 11/22/2018 Patient says that she's feeling better. Her shortness of breath is still there and she still coughing. She does not complain of any chest pain racing heart Objective - Vital Signs Vital signs: Vital Signs Temp 97.9 F 11/21/18 23:18 Pulse 78 11/22/18 12:00 Resp 16 11/22/18 12:00 BP 116/55 11/22/18 12:00 Pulse Ox 92 L 11/22/18 12:00 Intake & Output 11/21/18 11/22/18 11/22/18 18:59 06:59 18:59 Intake Total 120 480 Balance 120 480 Weight 109.1 kg Intake: Oral 120 480 Other: Voiding Method Toilet Toilet # Voids 1 2 - Exam On exam, alert and oriented x3. HEENT: Conjunctivae normal. eyes normal. NECK: No JVD. No thyroid enlargement. No LNs CARDIOVASCULAR: S1-S2 positive irregularly irregular rhythm RESPIRATION: Breath sounds diminished in the bases. No rhonchi or crackles. No bronchial breathing. ABDOMEN: Soft, nontender . No guarding. no masses palpable. No ascites, No hepatosplenomegaly.Bowel sounds heard. LEGS: No edema. no swelling NERVOUS SYSTEM: Cranial N 2-12 grossly normal. Moves all 4 limbs. No focal d eficits. No sensory deficit. No signs of cerebellar dysfucntion. Skin: no ulcer no rash - Labs CBC & Chem 7: 11/21/18 03:45 11/21/18 03:45 Labs: Abnormal Lab Results - Last 24 Hours (Table) 11/21/18 11/21/18 11/21/18 Range/Units 17:03 17:57 21:08 APTT 48.7 H (22.0-30.0) sec POC Glucose (mg/dL) 262 H 233 H (75-99) mg/dL Hemoglobin A1c (4.0-6.0) % 11/22/18 11/22/18 11/22/18 Range/Units 06:07 07:06 07:06 APTT 48.2 H (22.0-30.0) sec POC Glucose (mg/dL) 258 H (75-99) mg/dL Hemoglobin A1c 10.2 H (4.0-6.0) % 11/22/18 Range/Units 11:53 APTT (22.0-30.0) sec POC Glucose (mg/dL) 312 H (75-99) mg/dL Hemoglobin A1c (4.0-6.0) % Assessment and Plan Assessment: New onset atrial fibrillation with rapid ventricular rate. COPD with mild exacerbation. Chronic hypoxic respiratory failure on home oxygen when necessary Diabetes type 2 insulin-dependent Hypertension Hyperlipidemia Previous history of smoking Osteoarthritis Chronic low back pain History of Mnire's disease and vertigo Morbid obesity BMI 38.4 Plan - Continue heparin drip - Rate is controlled now - Awaiting cardiology for the recommendations - We'll continue rest medical care - We'll follow up on the patient Time with Patient: Greater than 30
[2018-11-22 13:49] VITALS: BMI 43.9
[2018-11-22] MEDS: HEPARIN SOD,PORK IN 0.45% NACL 25,000 UNIT in 0.45% NACL 1 250ML.BAG IV SCH (14:13)
[2018-11-22] MEDS ORDERED: guaiFENesin SYRUP 100MG/5ML 200 MG/10 ML CUP PO PRN (16:24)
[2018-11-22 16:49] LABS: Glucose,Whole Blood 386 mg/dL (75-99)
--- NOTE | 2018-11-22 17:42 | P.PN ---
Subjective Progress Note Date: 11/22/18 Principal diagnosis: COPD exacerbation/shortness of breath/atrial fibrillation This is a [78]-year-old [female] with history of remote smoking, COPD hyperlipidemia, diabetes mellitus, osteoarthritis, back pain, seasonal ALLERGIES, Mnire's disease, vertigo and PRN O2 at home. Patient presents in the emergency department with complaints of [shortness of breath, cough and vomiting due to cough. Transferred from [facility] due to no cardiology coverage for weekend. Patient doing better cough has decreased no current vomiting. Patient has converted to sinus rhythm, heart rate 87. VSS. Patient on room air. Discontinue IV heparin. Start Eliquis 5mg twice daily. Continue metoprolol tartrate 50 mg twice daily. Add liquid Robitussin PRN, as patient continues productive cough. Patient has no current complaints of chest pain, chest pressure, shortness of breath or palpitations. Decrease aspirin to 81 mg daily. Consult pulmonary. PHYSICAL EXAM: VITAL SIGNS: GENERAL: Well developed, in no acute distress. HEENT: Head is atraumatic, normocephalic. Pupils are equal, round. Extra ocular movements intact. Mucous membranes moist. Neck supple. No JVD. No carotid bruit. No thyromegaly. LUNGS: Bilateral wheezes and decreased airway movement. Scant rhonchi. No chest wall tenderness on palpation or with deep breathing. HEART: Regular rate and rhythm, no rubs or gallops. S1 and S2 heard. No murmur. ABDOMEN: Abdominal exam, WNL. Bowel sounds x4 quads. Soft, non-tender, without masses, organomegaly, or abdominal aorta enlargement. EXTREMITIES/VASCULAR: Extremities have easily palpable radial, femoral, dorsalis pedis and posterior tibial pulses. No cyanosis, calf tenderness. No BLE edema. NEUROLOGIC: Patient is awake, alert and oriented x3. No focal neurologic abnormalities. FINAL IMPRESSION: 1. COPD exacerbation 2. Intractable cough 3. New onset Atrial fibrillation/atrial flutter 4. Hyperlipidemia 5. Diabetes mellitus Objective - Vital Signs Vital signs: Vital Signs Temp 97.9 F 11/21/18 23:18 Pulse 94 11/22/18 16:00 Resp 16 11/22/18 16:00 BP 122/70 11/22/18 16:00 Pulse Ox 92 L 11/22/18 16:00 Intake & Output 11/21/18 11/22/18 11/22/18 18:59 06:59 18:59 Intake Total 120 1090 Balance 120 1090 Weight 109.1 kg 109.1 kg Intake: Intake, IV Titration 250 Amount Heparin Sod,Pork in 0.45% 250 NaCl 25,000 unit In 0.45 % NaCl 1 250ml.bag @ 10.5 UNITS/KG/HR 10.002 mls/ hr IV .Q24H [facility] Rx#: [id number] Oral 120 840 Other: Voiding Method Toilet Toilet # Voids 1 2 - Labs CBC & Chem 7: 11/21/18 03:45 11/21/18 03:45 Labs: Abnormal Lab Results - Last 24 Hours (Table) 11/21/18 11/21/18 11/22/18 Range/Units 17:57 21:08 06:07 APTT 48.7 H (22.0-30.0) sec POC Glucose (mg/dL) 233 H 258 H (75-99) mg/dL Hemoglobin A1c (4.0-6.0) % 11/22/18 11/22/18 11/22/18 Range/Units 07:06 07:06 11:53 APTT 48.2 H (22.0-30.0) sec POC Glucose (mg/dL) 312 H (75-99) mg/dL Hemoglobin A1c 10.2 H (4.0-6.0) % 11/22/18 Range/Units 16:43 APTT (22.0-30.0) sec POC Glucose (mg/dL) 386 H (75-99) mg/dL Hemoglobin A1c (4.0-6.0) %
[2018-11-22] MEDS: ATORVASTATIN 10 MG TAB PO SCH (20:27)
[2018-11-22] MEDS: APIXABAN 5 MG TAB PO SCH (20:27)
[2018-11-22 21:03] LABS: Glucose,Whole Blood 330 mg/dL (75-99)
[2018-11-22] MEDS: INSULIN DETEMIR (LEVEMIR) 100 UNIT/ML SYR SQ SCH (21:14)
[2018-11-22 21:36] VITALS: TEMP 97.7
[2018-11-22 22:42] LABS: HCT 40.2 % (34.0-46.0); HGB 12.9 gm/dL (11.4-16.0); MCH 29.7 pg (25.0-35.0); MCHC 32.1 g/dL (31.0-37.0); MCV 92.3 fL (80.0-100.0); Mean Platelet Volume 8.7; Platelet Count 171 k/uL (150-450); RBC 4.36 m/uL (3.80-5.40); RDW 13.2 % (11.5-15.5); WBC 9.2 k/uL (3.8-10.6)
[2018-11-22 23:18] VITALS: RESP 16
[2018-11-23 03:54] LABS: Appearance,Urine Clear (Clear); Bacteria,Urine Rare /hpf; Bilirubin,Urine Negative (Negative); Blood,Urine Large (Negative); Budding Yeast,Urine Many /hpf; Color,Urine Light Red; Glucose,Urine (UA) 4+ (Negative); Ketones,Urine Trace (Negative); Leukocyte Esterase,Urine Moderate (Negative); Nitrite,Urine Negative (Negative); Protein,Urine 1+ (Negative); RBC,Urine >182 /hpf (0-5); Squamous Epithelial Cell,Urine 3 /hpf (0-4); Urobilinogen,Urine <2.0 mg/dL (<2.0); WBC,Urine 23 /hpf (0-5)
[2018-11-23 06:23] LABS: Glucose,Whole Blood 146 mg/dL (75-99)
[2018-11-23] MEDS: INSULIN ASPART (NovoLOG) 100 UNIT/ML VIAL SQ SCH ×2 (06:36→12:33)
[2018-11-23 07:13] LABS: HCT 42.1 % (34.0-46.0); HGB 13.4 gm/dL (11.4-16.0); MCH 29.1 pg (25.0-35.0); MCHC 31.8 g/dL (31.0-37.0); MCV 91.6 fL (80.0-100.0); Mean Platelet Volume 9.2; Platelet Count 159 k/uL (150-450); RDW 14.3 % (11.5-15.5); WBC 8.9 k/uL (3.8-10.6)
[2018-11-23 07:27] LABS: African American GFR (CKD) >90 (>60 ml/min/1.73 sqM); Anion Gap 8 mmol/L; Blood Urea Nitrogen 18 mg/dL (7-17); Calcium 8.7 mg/dL (8.4-10.2); Carbon Dioxide 28 mmol/L (22-30); Chloride 105 mmol/L (98-107); Glucose 144 mg/dL (74-99); Potassium 3.9 mmol/L (3.5-5.1); Sodium 141 mmol/L (137-145)
[2018-11-23] MEDS: IPRATROPIUM-ALBUTEROL 3 ML NEB INHALATION PRN (07:57)
[2018-11-23] MEDS: PANTOPRAZOLE 40 MG TABLET PO SCH (08:36)
[2018-11-23] MEDS: predniSONE 20 MG TAB PO SCH (08:36)
[2018-11-23] MEDS: METOPROLOL TARTRATE 50 MG TAB PO SCH (08:37)
[2018-11-23] MEDS: APIXABAN 5 MG TAB PO SCH (08:37)
[2018-11-23] MEDS ORDERED: metFORMIN 500 MG TAB PO SCH (09:00)
[2018-11-23] MEDS ORDERED: ASPIRIN 81 MG PO SCH (09:00)
[2018-11-23] MEDS ORDERED: MECLIZINE 12.5 MG TAB PO SCH (09:00)
[2018-11-23] MEDS ORDERED: DOXYCYCLINE 100 MG CAP PO SCH (11:00)
[2018-11-23 11:24] VITALS: BP 160/72
[2018-11-23] MEDS: IPRATROPIUM-ALBUTEROL 3 ML NEB INHALATION SCH ×2 (11:29→15:57)
--- NOTE | 2018-11-23 12:00 | P.PN ---
Subjective Progress Note Date: 11/23/18 Principal diagnosis: COPD exacerbation/shortness of breath/atrial fibrillation This is a [78]-year-old [female] with history of remote smoking, COPD hyperlipidemia, diabetes mellitus, osteoarthritis, back pain, seasonal ALLERGIES, Mnire's disease, vertigo and PRN O2 at home. Patient presents in the emergency department with complaints of [shortness of breath, cough and vomiting due to cough. Transferred from [facility] due to no cardiology coverage for weekend. Patient doing better cough has decreased no current vomiting. Patient has converted to sinus rhythm, heart rate 87. VSS. Patient on room air. Discontinue IV heparin. Start Eliquis 5mg twice daily. Continue metoprolol tartrate 50 mg twice daily. Add liquid Robitussin PRN, as patient continues productive cough. Patient has no current complaints of chest pain, chest pressure, shortness of breath or palpitations. Decrease aspirin to 81 mg daily. Consult pulmonary. Progress note 11/23/2018 Patient continues stable. Currently sitting up in chair in no acute distress. Patient continue sinus rhythm on monitors, heart rate 88. VSS. patient has no current complaints of chest pain, chest pressure, shortness of breath or pa lpitations. Patient cleared for discharge from a cardiology perspective. Patient to continue with Eliquis 5mg daily. Stop ASA 81 mg. Continue Toprol tartrate 50 mg twice daily. Clear for DC. PHYSICAL EXAM: VITAL SIGNS: WNL. GENERAL: Well developed, in no acute distress. HEENT: Head is atraumatic, normocephalic. Pupils are equal, round. Extra ocular movements intact. Mucous membranes moist. Neck supple. No JVD. No carotid bruit. No thyromegaly. LUNGS: Improved bilateral wheezes airway movement. No rales and no rhonchi. No chest wall tenderness on palpation or with deep breathing. HEART: Regular rate and rhythm, no rubs or gallops. S1 and S2 heard. No murmur. ABDOMEN: Abdominal exam, WNL. Bowel sounds x4 quads. Soft, non-tender, without masses, organomegaly, or abdominal aorta enlargement. EXTREMITIES/VASCULAR: Extremities have easily palpable radial, femoral, dorsalis pedis and posterior tibial pulses. No cyanosis, calf tenderness. No BLE edema. NEUROLOGIC: Patient is awake, alert and oriented x3. No focal neurologic abnormalities. FINAL IMPRESSION: 1. COPD exacerbation - improved 2. Intractable cough - improved 3. New onset Atrial fibrillation/atrial flutter - SR currently, HR 88 4. Hyperlipidemia 5. Diabetes mellitus Objective - Vital Signs Vital signs: Vital Signs Temp 97.7 F 11/22/18 20:00 Pulse 88 11/23/18 11:39 Resp 16 11/23/18 11:21 BP 160/72 11/23/18 11:21 Pulse Ox 92 L 11/23/18 11:21 Intake & Output 11/22/18 11/23/18 11/23/18 18:59 06:59 18:59 Intake Total 1570 960 Balance 1570 960 Weight 109.1 kg 110 kg Intake: Intake, IV Titration 250 Amount Heparin Sod,Pork in 0.45% 250 NaCl 25,000 unit In 0.45 % NaCl 1 250ml.bag @ 10.5 UNITS/KG/HR 10.002 mls/ hr IV .Q24H [facility] Rx#: [id number] Oral 1320 960 Other: Voiding Method Toilet Toilet Toilet # Voids 3 - Labs CBC & Chem 7: 11/23/18 06:06 11/23/18 06:06 Labs: Abnormal Lab Results - Last 24 Hours (Table) 11/22/18 11/22/18 11/22/18 Range/Units 02:30 07:06 11:53 BUN (7-17) mg/dL Glucose (74-99) mg/dL POC Glucose (mg/dL) 312 H (75-99) mg/dL Hemoglobin A1c 10.2 H (4.0-6.0) % Urine Protein 1+ H (Negative) Urine Glucose (UA) 4+ H (Negative) Urine Ketones Trace H (Negative) Urine Blood Large H (Negative) Ur Leukocyte Esterase Moderate H (Negative) Urine RBC >182 H (0-5) /hpf Urine WBC 23 H (0-5) /hpf Urine Bacteria Rare H (None) /hpf Urine Yeast (Budding) Many H (None) /hpf 11/22/18 11/22/18 11/23/18 Range/Units 16:43 21:02 06:06 BUN 18 H (7-17) mg/dL Glucose 144 H (74-99) mg/dL POC Glucose (mg/dL) 386 H 330 H (75-99) mg/dL Hemoglobin A1c (4.0-6.0) % Urine Protein (Negative) Urine Glucose (UA) (Negative) Urine Ketones (Negative) Urine Blood (Negative) Ur Leukocyte Esterase (Negative) Urine RBC (0-5) /hpf Urine WBC (0-5) /hpf Urine Bacteria (None) /hpf Urine Yeast (Budding) (None) /hpf 11/23/18 Range/Units 06:22 BUN (7-17) mg/dL Glucose (74-99) mg/dL POC Glucose (mg/dL) 146 H (75-99) mg/dL Hemoglobin A1c (4.0-6.0) % Urine Protein (Negative) Urine Glucose (UA) (Negative) Urine Ketones (Negative) Urine Blood (Negative) Ur Leukocyte Esterase (Negative) Urine RBC (0-5) /hpf Urine WBC (0-5) /hpf Urine Bacteria (None) /hpf Urine Yeast (Budding) (None) /hpf
[2018-11-23 12:20] LABS: Glucose,Whole Blood 203 mg/dL (75-99)
--- NOTE | 2018-11-23 15:12 | P.DS ---
Providers Date of admission: 11/21/18 04:55 Expected date of discharge: 11/23/18 Attending physician: Chris Posey MD Consults: 11/21/18 04:51 Consult Physician Routine Consulting Provider: Naveed Maurer Consult Reason/Comments: paroxysmal atrial fib/flutter Do you want consulting provider notified?: Yes 11/22/18 16:26 Consult Physician Routine Consulting Provider: Hong Ward Consult Reason/Comments: COPD/cough/new onset atrial fibrillation Do you want consulting provider notified?: Yes Primary care physician: [facility] Course: Discharge diagnosis New onset atrial fibrillation with rapid ventricular rate. COPD with mild exacerbation. Chronic hypoxic respiratory failure on home oxygen when necessary Diabetes type 2 insulin-dependent Hypertension Hyperlipidemia Previous history of smoking Osteoarthritis Chronic low back pain History of Mnire's disease and vertigo Morbid obesity BMI 38.4 Hospital course Patient is a 78-year-old female with a known history of hypertension, diabetes type 2 insulin-dependent, COPD with recent history of smoking on home oxygen as needed, history of Mnire's disease initially presents to [facility] with complaints of cough and shortness of breath. Patient says that since last Thursday night she's been having increased breath cough and without any sputum production. Next day morning patient checked her blood pressure and was found to have increase in heart rate up to 150s. Patient initially presents to [facility] ER thinking that she was having COPD exacerbation, where she was found to have atrial fibrillation with RVR and was transferred to [facility] for further evaluation. Patient otherwise denied any chest pain. No palpitations. No leg swelling. No fever no chills. Patient did have an episode of vomiting with cough. No diarrhea. No nausea or abdominal pain. Patient was on Cardizem drip. Patient was also given amiodarone in the ER.. Currently rate is controlled with heart rate in around 100. Troponin 3 negative. Patient was followed up by cardiology and her heparin was stopped and she was started on adequate. Her Cardizem was also started and she was started on Metoprolol 50 mg twice a day Patient was still wheezing and the wheezing improve slowly. She was started on doxycycline and oral steroids. Breathing treatments were continued. On 12/11/2018 Says that her shortness of breath is better No chest pain or racing heart, no cough No abdominal pain, nausea and vomiting, or diarrhea constipatio On exam, alert and oriented x3. HEENT: Conjunctivae normal. eyes normal. NECK: No JVD. No thyroid enlargement. No LNs CARDIOVASCULAR: S1-S2 positive Respiration : diminished in the bases. No rhonchi or crackles. No bronchial breathing. ABDOMEN: Soft, nontender . No guarding. no masses palpable. No ascites, No hepatosplenomegaly.Bowel sounds heard. LEGS: No edema. no swelling NERVOUS SYSTEM: Cranial N 2-12 grossly normal. Moves all 4 limbs. No focal deficits. No sensory deficit. No signs of cerebellar dysfucntion. Skin: no ulcer no rash The patient was cleared by cardiology to discharge Patient will be discharged on doxycycline, oral steroids and breathing treatments will continue her home He is to follow with primary care doctors and cardiology and pulmonology as discussed below in the discharge summary Patient Condition at Discharge: Good Plan - Discharge Summary Discharge Rx Participant: Yes New Discharge Prescriptions: New Apixaban [Eliquis] 5 mg PO BID #60 tab Metoprolol Tartrate [Lopressor] 50 mg PO BID #60 tab predniSONE 40 mg PO DAILY #7 tab guaiFENesin SYRUP 100MG/5ML [Robitussin] 200 mg PO Q6H PRN #200 ml PRN Reason: Cough Doxycycline [Vibramycin] 100 mg PO BID #14 cap Continue Ondansetron [Zofran] 4 mg PO Q8HR PRN PRN Reason: Nausea Simvastatin [Zocor] 10 mg PO HS Albuterol Nebulized [Ventolin Nebulized] 2.5 mg INHALATION RT-TID Acetaminophen Tab [Tylenol] 650 mg PO Q4-6H PRN PRN Reason: Pain metFORMIN HCL [Metformin HCl] 500 mg PO BID Loratadine 10 mg PO DAILY Meclizine [Antivert] 25 mg PO BID Insulin Detemir [Levemir Flextouch] 40 unit SQ HS Discharge Medication List Acetaminophen Tab [Tylenol] 650 mg PO Q4-6H PRN 10/28/16 [History] Albuterol Nebulized [Ventolin Nebulized] 2.5 mg INHALATION RT-TID 10/28/16 [History] Loratadine 10 mg PO DAILY 10/28/16 [History] Ondansetron [Zofran] 4 mg PO Q8HR PRN 10/28/16 [History] Simvastatin [Zocor] 10 mg PO HS 10/28/16 [History] metFORMIN HCL [Metformin HCl] 500 mg PO BID 10/28/16 [History] Insulin Detemir [Levemir Flextouch] 40 unit SQ HS 11/21/18 [History] Meclizine [Antivert] 25 mg PO BID 11/21/18 [History] Apixaban [Eliquis] 5 mg PO BID #60 tab 11/23/18 [Rx] Doxycycline [Vibramycin] 100 mg PO BID #14 cap 11/23/18 [Rx] Metoprolol Tartrate [Lopressor] 50 mg PO BID #60 tab 11/23/18 [Rx] guaiFENesin SYRUP 100MG/5ML [Robitussin] 200 mg PO Q6H PRN #200 ml 11/23/18 [Rx] predniSONE 40 mg PO DAILY #7 tab 11/23/18 [Rx] Follow up Appointment(s)/Referral(s): Natividad Rao MD [Primary Care Provider] - 1-2 days Caio Delarosa MD [STAFF PHYSICIAN] - (RV on December [address] Delarosa) Patient Instructions/Handouts: A-fib (Atrial Fibrillation) (DC) Activity/Diet/Wound Care/Special Instructions: pts 30 dy copay for eliquis is $47, free 30 day coupon applied in [facility] OP pharmacy If she expressed anymore increased racing heart any increased shortness of breath or any cough or any chest pain, any bleeding from anywhere, any loss of vision or blurry vision or any confusion, any unresolving headache, please call 911 and come to the ER Discharge Disposition: HOME SELF-CARE
[2018-11-23 16:06] VITALS: PULSE 80
--- NOTE | 2018-11-23 16:32 | P.CNPUL ---
History of Present Illness Consult date: 11/23/18 Requesting physician: Philip Trinidad Reason for consult: dyspnea, COPD Chief complaint: Acute COPD exacerbation, wheezing History of present illness: This is a 78-year-old white female patient of Dr. Rao, with past medical history of diabetes mellitus, osteoarthritis, patient gives a history of COPD, however her past smoking history is only 10 years, in the remote past. No history of asthma, denies secondhand smoke. Patient presents to the hospital on 11/21/2018 as a transfer from [facility] for evaluation of shortness of breath. Her symptoms started 2 or 3 days prior and became progressively worse. Has a nonproductive cough,, denied any chest pain, or palpitations. Denied any phlegm production, denied any fever or chills. Patient has oral prednisone, doxycycline, cough syrup on her home medication list, suggesting outpatient treatment, although the patient did not mention this to us. Initial EKG showed normal sinus rhythm, but shortly after patient went into atrial flutter, with 2-1 AV conduction, new onset. Chest x-ray showed mild cardiomegaly, hyperinflation with mild interstitial prominence focal patchy left basilar opacity likely related to atelectasis. Patient was evaluated by cardiology, started on heparin drip, and beta blockers. Echocardiogram showed moderate concentric left ventricular hypertrophy, EF of 60-65%, trace to mild mitral regurgitation, mild tricuspid regurgitation, mild pulmonary hypertension, with right-sided pressures of 37.3 mmHg. Trivial pericardial effusion. Patient had converted, currently she is sinus mechanism with a controlled rates. Vital signs are stable, she has been started on oral anticoagulation, her breathing is improved, although she still has some wheezing bilaterally, she is not on any inhalers on the regular basis. Does have lower extremity edema. Vital signs are stable, maintaining good oxygenation on room air. She is anticipated to be discharged home today as long as she is cleared by our service. Review of Systems All systems: negative Constitutional: Denies chills, Denies fever Eyes: denies blurred vision, denies pain Ears, nose, mouth and throat: Denies headache, Denies sore throat Cardiovascular: Reports leg edema, Denies chest pain, Denies shortness of breath Respiratory: Reports congestion, Reports cough, Reports dyspnea Gastrointestinal: Denies abdominal pain, Denies diarrhea, Denies nausea, Denies vomiting Genitourinary: Denies dysuria, Denies hematuria Musculoskeletal: Denies myalgias Integumentary: Denies pruritus, Denies rash Neurological: Denies numbness, Denies weakness Psychiatric: Denies anxiety, Denies depression Endocrine: Denies fatigue, Denies weight change Past Medical History Past Medical History: COPD, Diabetes Mellitus, Osteoarthritis (OA) Additional Past Medical History / Comment(s): BACK PAIN, ENVIRONMENTAL ALLERGIES, OXYGEN AT 2 L PRN SOB., STATES NEW DIAGNOSIS OF MENIERES WITH VERTIGO. History of Any Multi-Drug Resistant Organisms: None Reported Past Surgical History: Breast Surgery, Hysterectomy Past Anesthesia/Blood Transfusion Reactions: No Reported Reaction, Motion Sickness Past Psychological History: No Psychological Hx Reported Smoking Status: Former smoker Past Alcohol Use History: None Reported Past Drug Use History: None Reported - Past Family History Mother Family Medical History: Cancer Additional Family Medical History / Comment(s): LUNG CANCER Medications and Allergies Home Medications Medication Instructions Recorded Confirmed Type Acetaminophen Tab [Tylenol] 650 mg PO Q4-6H PRN 10/28/16 11/21/18 History Albuterol Nebulized [Ventolin 2.5 mg INHALATION RT-TID 10/28/16 11/21/18 History Nebulized] Loratadine 10 mg PO DAILY 10/28/16 11/21/18 History Ondansetron [Zofran] 4 mg PO Q8HR PRN 10/28/16 11/21/18 History Simvastatin [Zocor] 10 mg PO HS 10/28/16 11/21/18 History metFORMIN HCL [Metformin HCl] 500 mg PO BID 10/28/16 11/21/18 History Insulin Detemir [Levemir Flextouch] 40 unit SQ HS 11/21/18 11/21/18 History Meclizine [Antivert] 25 mg PO BID 11/21/18 11/21/18 History Apixaban [Eliquis] 5 mg PO BID #60 tab 11/23/18 Rx Doxycycline [Vibramycin] 100 mg PO BID #14 cap 11/23/18 Rx Metoprolol Tartrate [Lopressor] 50 mg PO BID #60 tab 11/23/18 Rx guaiFENesin SYRUP 100MG/5ML 200 mg PO Q6H PRN #200 ml 11/23/18 Rx [Robitussin] predniSONE 40 mg PO DAILY #7 tab 11/23/18 Rx Allergies Allergy/AdvReac Type Severity Reaction Status Date / Time celery Allergy Severe Rash/Hives Verified 11/21/18 07:41 meperidine [From Demerol] Allergy Severe Anaphylaxis Verified 10/30/16 10:17 Physical Exam Vitals: Vital Signs Temp Pulse Pulse Resp BP Pulse Ox 11/23/18 16:06 80 11/23/18 15:58 84 11/23/18 12:00 16 11/23/18 11:39 88 11/23/18 11:30 88 11/23/18 11:21 88 16 160/72 92 L 11/23/18 08:10 84 11/23/18 08:00 84 16 135/65 95 11/23/18 07:58 76 11/23/18 03:07 74 16 125/60 94 L 11/22/18 23:14 83 16 131/64 93 L 11/22/18 20:00 97.7 F 95 17 119/85 95 11/22/18 19:39 101 H 16 11/22/18 19:27 100 16 Intake and Output 11/23/18 11/23/18 11/23/18 06:59 14:59 22:59 Intake Total 960 720 Balance 960 720 Intake: Oral 960 720 Other: Voiding Method Toilet Toilet # Voids 3 3 Weight 110 kg GENERAL EXAM: Alert, pleasant, 78-year-old white female comfortable in no apparent distress. HEAD: Normocephalic/atraumatic. EYES: Normal reaction of pupils, equal size. Conjunctiva pink, sclera white. NOSE: Clear with pink turbinates. THROAT: No erythema or exudates. NECK: No masses, no JVD, no thyroid enlargement, no adenopathy. CHEST: No chest wall deformity. Symmetrical expansion. LUNGS: Equal air entry with diffuse wheezes CVS: Regular rate and rhythm, normal S1 and S2, no gallops, no murmurs, no rubs ABDOMEN: Soft, nontender. No hepatosplenomegaly, normal bowel sounds, no guarding or rigidity. EXTREMITIES: No clubbing, 1+ lower extremity edema, no cyanosis, 2+ pulses and upper and lower extremities. MUSCULOSKELETAL: Muscle strength and tone normal. SPINE: No scoliosis or deformity SKIN: No rashes CENTRAL NERVOUS SYSTEM: Alert and oriented -3. No focal deficits, tone is normal in all 4 extremities. PSYCHIATRIC: Alert and oriented -3. Appropriate affect. Intact judgment and insight. Results - Laboratory Findings CBC and BMP: 11/23/18 06:06 11/23/18 06:06 PT/INR, D-dimer PT 10.3 sec (9.0-12.0) 11/21/18 03:45 INR 1.0 (<1.2) 11/21/18 03:45 Abnormal lab findings: Abnormal Labs 11/21/18 11/21/18 11/21/18 03:45 03:45 17:03 APTT 21.2 L BUN Glucose 226 H POC Glucose (mg/dL) 262 H Hemoglobin A1c Urine Protein Urine Glucose (UA) Urine Ketones Urine Blood Ur Leukocyte Esterase Urine RBC Urine WBC Urine Bacteria Urine Yeast (Budding) 11/21/18 11/21/18 11/22/18 17:57 21:08 02:30 APTT 48.7 H BUN Glucose POC Glucose (mg/dL) 233 H Hemoglobin A1c Urine Protein 1+ H Urine Glucose (UA) 4+ H Urine Ketones Trace H Urine Blood Large H Ur Leukocyte Esterase Moderate H Urine RBC >182 H Urine WBC 23 H Urine Bacteria Rare H Urine Yeast (Budding) Many H 11/22/18 11/22/18 11/22/18 06:07 07:06 07:06 APTT 48.2 H BUN Glucose POC Glucose (mg/dL) 258 H Hemoglobin A1c 10.2 H Urine Protein Urine Glucose (UA) Urine Ketones Urine Blood Ur Leukocyte Esterase Urine RBC Urine WBC Urine Bacteria Urine Yeast (Budding) 11/22/18 11/22/18 11/22/18 11:53 16:43 21:02 APTT BUN Glucose POC Glucose (mg/dL) 312 H 386 H 330 H Hemoglobin A1c Urine Protein Urine Glucose (UA) Urine Ketones Urine Blood Ur Leukocyte Esterase Urine RBC Urine WBC Urine Bacteria Urine Yeast (Budding) 11/23/18 11/23/18 11/23/18 06:06 06:22 12:01 APTT BUN 18 H Glucose 144 H POC Glucose (mg/dL) 146 H 203 H Hemoglobin A1c Urine Protein Urine Glucose (UA) Urine Ketones Urine Blood Ur Leukocyte Esterase Urine RBC Urine WBC Urine Bacteria Urine Yeast (Budding) - Diagnostic Findings Chest x-ray: report reviewed, image reviewed Assessment and Plan Plan: Assessment: #1. Acute exacerbation of COPD #2. New onset A. fib flutter with RVR, currently in sinus rhythm #3. Diabetes mellitus type 2 #4. Remote history of smoking, patient had only smoked for 10 years according to her #5. Osteoarthritis #6. Chronic back pain #7. Meniere's disease #8. Hyperlipidemia Plan: Patient is stable, still somewhat bronchospastic, but maintaining good oxygenation, good air entry noted bilaterally, no significant cough or congestion, room air pulse ox is 92%. Chest x-ray has been reviewed, showing patchy left basilar atelectasis, no other acute findings. Patient is stable for discharge home today on prednisone taper, she can continue her doxycycline, he has been started on oral Eliquis, and cough syrup. She will need outpatient follow-up in the pulmonary clinic and will need outpatient PFT, and the possibility of a sleep study I performed a history & physical examination of the patient and discussed their management with my nurse practitioner, Vanessa Alvarez. I reviewed the nurse practitioner's note and agree with the documented findings and plan of care. Lung sounds are positive for diffuse wheezes throughout the lung bradley. The findings and the impression was discussed with the patient. I attest to the documentation by the nurse practitioner. Time with Patient: Greater than 30
--- NOTE | 2018-11-23 16:57 | PN ---
PROGRESS NOTE DATE OF SERVICE: Mrs. Velez came in a paroxysmal atrial fibrillation. She is comfortable resting, breathing nicely. No symptoms. She has converted to sinus rhythm. I am recommending Eliquis and beta-jessenia. Vitals are stable. No JVD or carotid bruit. S1, S2 heard normally. Heart sounds heard distantly. Lungs are clear. Abdomen and lower extremity exam unchanged. Plan is to place her on beta blockers, Eliquis, discharge her, and I will see her in the office in 2 weeks. MMODL / IJN: [id number] /
[2018-11-24] MEDS ORDERED: LORATADINE 10 MG TAB PO SCH (09:00)
== END 2018-11-23 17:01 | disposition home or self-care (01) | DRG 309 ==
LOC: EC 02:36 → 3NMEDONC 04:55 → 3SCARD 07:05
PROVIDERS: ADMIT Internal Medicine; ATTEND Internal Medicine
DX: I48.0 Paroxysmal atrial fibrillation (principal); J44.1 Chronic obstructive pulmonary disease with (acute) exacerbation; J96.11 Chronic respiratory failure with hypoxia; J98.11 Atelectasis; E11.9 Type 2 diabetes mellitus without complications; E66.01 Morbid (severe) obesity due to excess calories; E78.5 Hyperlipidemia, unspecified; G89.29 Other chronic pain; H81.09 Meniere's disease, unspecified ear; I10 Essential (primary) hypertension; I48.92 Unspecified atrial flutter; M19.90 Unspecified osteoarthritis, unspecified site; Z68.38 Body mass index [BMI] 38.0-38.9, adult; Z79.4 Long term (current) use of insulin; Z79.82 Long term (current) use of aspirin; Z79.899 Other long term (current) drug therapy; Z80.1 Family history of malignant neoplasm of trachea, bronchus and lung; Z87.891 Personal history of nicotine dependence; Z90.710 Acquired absence of both cervix and uterus; Z99.81 Dependence on supplemental oxygen; M54.5 Low back pain; I08.1 Rheumatic disorders of both mitral and tricuspid valves; I27.20 Pulmonary hypertension, unspecified
CPT/HCPCS: 36415; 71045; 80048; 80053; 80061; 81001; 83036; 83735; 83880; 84443; 84484; 85025; 85027; 85610; 85730; 93005; 93306; 94640; 94760; 96372; 99285